=== PATIENT | female | born 1940 | race Hispanic/Latino ===

== ENCOUNTER 2024-05-20 04:56 | Emergency (ER) | payer MEDICARE, BC ==
[2024-05-20 05:22] LABS: #Basophils 0.1 thou/uL (0.0-0.2); #Eosinophils 0.1 thou/uL (0.0-0.7); #Lymphocytes 1.8 thou/uL (1.20-3.40); #Monocytes 0.6 thou/uL (0.11-0.59); #Neutrophils 5.3 thou/uL (1.40-6.50); %Basophils 1.4 % (0.0-1.0); %Eosinophils 1.2 % (0.0-10.0); %Lymphocytes 22.8 % (21.0-51.0); %Neutrophils 67.7 % (42.0-75.0); Hematocrit 42.4 % (36.0-47.0); Hemoglobin 14.3 g/dL (12.0-16.0); Mean Corpuscular HGB CONC 33.6 g/dL (32.0-36.0); Mean Corpuscular Hemoglobin 30.6 pg (27.0-31.0); Mean Corpuscular Volume 91.1 fl (78.0-98.0); Mean Platelet Volume 7.6 fL (7.4-10.4); Platelet Count 147 10x3/uL (130-400); RBC Distribution Width 10.7 % (11.5-14.5); Red Blood Cell (RBC) Count 4.65 mill/uL (4.20-5.40); White Blood Cell (WBC) Count 7.8 10x3/uL (4.8-10.8)
[2024-05-20 05:43] LABS: ALT (SGPT) 22 U/L (8-55); AST (SGOT) 25 U/L (5-34); Albumin 3.7 g/dL (3.4-4.8); Alkaline Phosphatase 90 U/L (40-110); Anion Gap 14 mmol/L (10-20); BUN (Urea Nitrogen) 17 mg/dL (9.8-20.1); Bilirubin, Total 0.7 mg/dL (0.2-1.2); Calc. Creatinine Clearance 0 mL/min (70-130); Calcium 9.5 mg/dL (7.8-10.44); Carbon Dioxide 22 mmol/L (23-31); Chloride 108 mmol/L (98-107); Estimated GFR 82; Globulin 3.6 g/dL (2.4-3.5); Glucose 151 mg/dL (83-110); Lipase 92 U/L (8-78); Potassium 3.7 mmol/L (3.5-5.1); Protein, Total 7.3 g/dL (5.8-8.1); Sodium 140 mmol/L (136-145)
[2024-05-20 05:45] LABS: Troponin I 0.027 ng/mL (< 0.028)
[2024-05-20] MEDS ORDERED: Morphine 4 MG/ML VIAL ONE (06:13)
[2024-05-20] MEDS ORDERED: cefTRIAXone (ROCEPHIN) 1 GM VIAL ONE (08:30)
[2024-05-20] MEDS ORDERED: Sodium Chloride 0.9% 100 ML ONE (08:31)
[2024-05-20] MEDS ORDERED: Iopamidol 370 76% 100 ML VIAL ONE (10:39)
== END 2024-05-20 09:55 | disposition short-term general hospital (02) ==
LOC: BURERS 04:56 → EDBD 04:56 → BURERS 09:55
DX: K80.50 Calculus of bile duct without cholangitis or cholecystitis without obstruction (principal); R94.31 Abnormal electrocardiogram [ECG] [EKG]; I10 Essential (primary) hypertension
CPT/HCPCS: 71045; 74177; 80053; 83690; 83880; 84484; 85025; 93005; 96365; 96375; J0696; J2272; Q9967